=== PATIENT | male | born 1960 | race Caucasian/White ===

== ENCOUNTER 2020-06-16 19:07 | Emergency (ER) | payer SELFPAY ==
[2020-06-16] MEDS ORDERED: Aspirin Chewable 81 MG TAB ONE (19:16)
[2020-06-16] MEDS ORDERED: Morphine 4 MG/ML VIAL ONE (19:18)
[2020-06-16 19:29] LABS: #Basophils 0.1 thou/uL (0.0-0.2); #Eosinphils 0.1 thou/uL (0.0-0.7); #Lymphocytes 3.5 thou/uL (1.20-3.40); #Monocytes 0.7 thou/uL (0.11-0.59); #Neutrophils 10.5 thou/uL (1.40-6.50); %Basophils 0.8 % (0.0-1.0); %Eosinophils 0.7 % (0.0-10.0); %Lymphocytes 23.6 % (21.0-51.0); %Monocytes 4.7 % (0.0-10.0); %Neutrophils 70.3 % (42.0-75.0); Mean Corpuscular HGB CONC 32.6 g/dL (32.0-36.0); Mean Corpuscular Hemoglobin 31.8 pg (27.0-31.0); Mean Corpuscular Volume 97.8 fL (78.0-98.0); Mean Platelet Volume 6.7 fL (7.4-10.4); Platelet Count 337 thou/uL (130-400); RBC Distribution Width 11.6 % (11.5-14.5); Red Blood Cell (RBC) Count 5.04 mill/uL (4.70-6.10)
[2020-06-16 19:44] LABS: ALT (SGPT) 17 U/L (8-55); AST (SGOT) 30 U/L (5-34); Albumin 4.4 g/dL (3.5-5.0); Alkaline Phosphatase 119 U/L (40-110); Anion Gap 20 mmol/L (10-20); BUN (Urea Nitrogen) 12 mg/dL (8.4-25.7); Bilirubin, Total 0.5 mg/dL (0.2-1.2); Calc. Creatinine Clearance 0 mL/min (70-130); Calcium 10.1 mg/dL (7.8-10.44); Carbon Dioxide 20 mmol/L (22-29); Chloride 103 mmol/L (98-107); Estimated GFR-MDRD 74; Globulin 2.8 g/dL (2.4-3.5); Glucose 112 mg/dL (70-105); Protein, Total 7.2 g/dL (6.0-8.3); Sodium 139 mmol/L (136-145)
[2020-06-16] MEDS ORDERED: Nitroglycerin 0.4 MG TAB 1 EACH ONE (19:57)
[2020-06-16] MEDS ORDERED: Nitroglycerin 50 MG/250 ML BOT 250 ML ONE (19:57)
[2020-06-16 20:17] LABS: CKMB 26.6 ng/mL (0-6.6)
--- NOTE | 2020-06-16 20:59 | RAD ---
PORTABLE CHEST: 06/16/20 An AP portable film at 1926 shows a normal sized heart and clear lungs. No infiltrate or effusion was seen. No vascular congestion or edema was present. The mediastinum appears normal. IMPRESSION: No acute thoracic finding. POS: HOME
== END 2020-06-16 20:15 | disposition short-term general hospital (02) ==
LOC: BURERS 19:07
DX: I20.0 Unstable angina (principal); R11.2 Nausea with vomiting, unspecified; F17.210 Nicotine dependence, cigarettes, uncomplicated
CPT/HCPCS: 36415; 71045; 80053; 82553; 83605; 83880; 84484; 85025; 93005; 96374; 96375; J2270